=== PATIENT | female | born 1995 | race Hispanic/Latino ===

== ENCOUNTER 2016-10-29 20:07 | Emergency (ER) | payer OTHER ==
[~2016-10-29] VITALS: Ht 165.1 cm; Wt 80.5 kg
[2016-10-29 20:35] VITALS: BP 128/84; PULSE 70; RESP 16; O2SAT 100
--- NOTE | 2016-10-29 22:56 | ED.REPORT ---
HPI-General Illness Date of Service Oct 29, 2016 ED Provider: Robinson Stroud MD This is a 20-year-old female with no known past medical history who presents to the emergency department for lumps under her chin. Patient noted one week ago she had some swelling under her chin with a rash along the right side of her face. Both the swelling and rash improved however she felt lumps on the left side of her neck that were painful and now rash on her upper arms. She does note some sore throat and pain with swallowing. She mentioned 3 days ago she did have some difficulty with taking deep breaths however this has resolved. She also has some left sided ear pain for the last 3 days. She denies fevers, chills, vomiting, chest pain, abdominal pain, diarrhea, dysuria. She saw doctor 2 days prior who gave amoxicillin for lymphadenopathy. She has been taking it since then with improvement in her submental lymphadenopathy. Nursing Notes Stated Complaint: LUMPS UNDER CHIN AND EARS, RASH ON NECK AND ARMS Chief Complaint: Skin Rash/Abscess Nursing Notes Reviewed: Yes Allergies: Coded Allergies: No Known Allergies (Unverified , 10/29/16) General Time Seen by MD: 22:35 Chief Complaint Other (Swelling under chin) Hx Obtained From: Patient Past Medical History Past Medical History Denies Past Surgical History Reports: Tonsillectomy Smoking History Never Smoker Social History Alcohol Use: Denies alcohol use Drug Use: Denies drug use Review of Systems Full Review of Systems Constitutional: Denies: Chills, Fever Ears / Nose / Throat: Reports: Earache left, Sore throat, Denies: Ear drainage bilateral, Ear ringing bilateral, Hearing loss bilateral , Nasal congestion, Sinus problem Respiratory: Denies: Shortness of breath Cardiovascular: Denies: Chest pain GI: Reports: Nausea, Denies: Abdominal pain, Diarrhea, Vomiting Female: Denies: Dysuria Skin: Reports Itching, Reports Rash Neurologic: Reports: Dizziness Physical Exam Vital Signs Vital Signs Date Time Temp Pulse Resp B/P Pulse Ox O2 Delivery O2 Flow Rate FiO2 10/30/16 01:47 36.7 79 18 111/79 100 Room Air 10/29/16 20:35 37.0 70 16 128/84 100 Room Air Initial VS: Reviewed General/Constitutional: Well-developed, Well-nourished Head / Eyes: Atraumatic, Normocephalic ENT: Mucous membranes moist, Conjunctiva normal, No scleral icterus Neck: Supple Respiratory: Breath sounds normal, Clear to auscultation, No respiratory distress Cardiovascular: Regular rate & rhythm, Heart sounds normal Abdomen / GI: Soft, Non-tender, No guarding Back: No CVA tenderness Extremities: Vascular intact, Neuro intact, No swelling Skin: Warm, Dry Neurologic: Alert, Oriented, Nonfocal Psychiatric: Mood/affect normal, Behavior normal, Normal thought content Adenopathy: Positive: Anterior cervical L, Submandibular L, Submental L, Negative: Posterior cervical bilat Rash / Lesion Location: Positive: Arm L, Arm R, Neck (seems to be improving versus the rash on right and left arm.), Negative: Back, Face Rash / Lesion Pattern: Positive: Urticarial Interpretation & Diagnostics Lab Results Interpretation Result Diagram: 10/29/16 2350 Test 10/29/16 21:48 10/29/16 23:50 Hold Urine Received (Received) White Blood Count 7.3th/mm3 (3.8-10.1) Red Blood Count 4.48mil/mm3 (3.90-5.20) Hemoglobin 12.9g/dL (12.0-15.6) Hematocrit 38.3% (35.0-46.0) Mean Corpuscular Volume 85.5fL (81-100) Mean Corpuscular Hemoglobin 28.8pg (27.0-35.0) Mean Corpuscular Hemoglobin Concent 33.7% (32.0-37.0) Red Cell Distribution Width 12.7% (12.3-15.4) Platelet Count 301bil/L (150-400) Neutrophils (%) (Auto) 47.5% (40-74) Lymphocytes (%) (Auto) 36.9% (14-46) Monocytes (%) (Auto) 10.8% (4-12) Eosinophils (%) (Auto) 4.0% (0-5) Basophils (%) (Auto) 0.7% (0-3) Erythrocyte Sedimentation Rate 20mm/hr (0-32) Hold Blue Top Tube Received (Received) Hold Red Top Tube Received (Received) Hold [place] Top Tube Received (Received) Hold [place] Top Tube Received (Received) Monoscreen Negative (Negative) Re-Eval/Medical Decision Med Decision/Clinical Course 20-year-old female with submental and midline adenopathy in the chin and upper neck. Source of infection not clear. Not consistent with thyroglossal duct cyst on exam. Begun already on amoxicillin and advised to continue. Monospot was negative. No apparent risk factor for cat Scratch disease. Follow-up with PCP. Prompt return if any swallowing difficulty or other new symptoms of concern This is a 20-year-old female with no known past medical history presents to the emergency department for swelling under her chin associated with rashes. On exam she does have lymphadenopathy to the left submental lymph node, left anterior cervical and left submandibular. She has been on amoxicillin for this which has improved her submental lymphadenopathy, without improvement to the other lymph nodes. She has only been taking this medication for about a day and a half, however her symptoms do be seem to improving. CBC and Monospot unremarkable. Streptozyme and ARNEL pending. Based off all of this, there is less concern for lymphoma. Part of the differential includes autoimmune causes so ARNEL is ordered and should be followed up in the outpatient setting. This is likely a viral cause which is eliciting her rash and her lymphadenopathy. However she should continue to take the antibiotics in case she does have any dental sort of infection causing process. Counseled Regarding: Diagnosis, Lab results, Need for follow-up, When/why to return to ED Discharge & Departure Primary Impression: Lymphadenopathy of head and neck Disposition: Home Discharge Condition All VS Reviewed: Yes Condition: Stable Patient Instructions: Lymphadenopathy (ED) Additional Instructions: The cause of your pain is due to lymphadenopathy. These are tender lymph nodes that occur usually with a viral illness. The blood work you had here did not show any signs of bacterial infection. Your symptoms should resolve on their own. If these continue to keep swelling in size, return to the emergency department. Otherwise follow-up with your primary care provider in one week. Referrals: Rosalba Hein MD (PCP) Attending Statement As attending of record for this patient, I conducted an independent history and physical examination, and agree with the documentation per the resident note as above, and as amended. Zak Billingsley DO Oct 29, 2016 22:56 Robinson Stroud MD Oct 30, 2016 06:57
[2016-10-29 23:59] LABS: BASOPHILS % (AUTO) 0.7 % (0-3); MONOCYTES % (AUTO) 10.8 % (4-12); Mean Corpuscular Hemoglobin 28.8 pg (27.0-35.0); Mean Corpuscular Volume 85.5 fL (81-100); NEUTROPHILS % (AUTO) 47.5 % (40-74); Platelet Count 301 bil/L (150-400)
[2016-10-30 00:19] LABS: ERYTHROCYTE SEDIMENTATION RATE 20 mm/hr (0-32)
[2016-10-30 01:47] VITALS: BP 111/79; PULSE 79; RESP 18; O2SAT 100
== END 2016-10-30 01:48 | disposition home or self-care (01) ==
LOC: SED 20:07
DX: R59.0 Localized enlarged lymph nodes (principal); R51 Headache; J02.9 Acute pharyngitis, unspecified; H92.02 Otalgia, left ear; Z98.890 Other specified postprocedural states